=== PATIENT | male | born 1985 | race Caucasian/White ===

== ENCOUNTER 2021-05-14 13:59 | Emergency (ER) | payer MEDICAID ==
[~2021-05-14] VITALS: Ht 170.2 cm; Wt 91.0 kg
[2021-05-14] MEDS ORDERED: CEFAZOLIN 1000MG PREMIX 50 ML IV ONE (15:45)
[2021-05-14 16:27] LABS: BASOPHILS % 0.9 % (0.0-2.0); EOSINOPHILS % 1.5 % (0.0-5.0); HEMATOCRIT. 50.1 % (42.0-52.0); HEMOGLOBIN. 17.3 g/dL (14.0-18.0); LYMPHOCYTES % 18.9 % (20.0-50.0); MEAN CORPUSCULAR HEMOGLOBIN 31.8 pg (28.0-32.0); MEAN PLATELET VOLUME 8.2 fl (7.4-10.4); MONOCYTES % 9.3 % (2.0-8.0); NEUTROPHILS % 69.4 % (40.0-76.0); PLATELET 284 x1000/uL (130-400); RED BLOOD CELL COUNT 5.45 mill/uL (4.7-6.1); RED CELL DISTRIBUTION WIDTH 12.9 % (11.6-14.6)
[2021-05-14 16:35] LABS: CHLORIDE 103 mEq/L (98-107)
[2021-05-14 16:37] LABS: PROTHROMBIN TIME 10.9 sec (9.6-11.0)
[2021-05-14] MEDS ORDERED: KETOROLAC 30MG/ML VIAL IV ONE (18:00)
[2021-05-14] MEDS ORDERED: IBUP-2029 MT (22:40)
[2021-05-14] MEDS ORDERED: AMOX-424 MT (22:41)
[2021-05-14 23:06] VITALS: BP 110/72
== END 2021-05-14 23:38 | disposition home or self-care (01) ==
LOC: ER 13:59 → CANBEDREQ 05-15 03:04
DX: S61.211S Laceration without foreign body of left index finger without damage to nail, sequela (principal); L03.012 Cellulitis of left finger; M65.88 Other synovitis and tenosynovitis, other site; W27.8XXS Contact with other nonpowered hand tool, sequela
CPT/HCPCS: 36415; 80053; 85025; 85610; 87040; 96365; 96375; 99284; J0690; J1885